=== PATIENT | female | born 1950 | race Two or more races ===

== ENCOUNTER 2020-02-01 10:57 | Outpatient (CLI) | payer OTHER | END 2020-02-01 11:05 | disposition home or self-care (01) | LOC: MAMO-SONO 10:57 | PROVIDERS: ATTEND Internal Medicine | DX: Z12.31 Encounter for screening mammogram for malignant neoplasm of breast (principal) ==

== ENCOUNTER 2020-12-05 09:17 | Outpatient (CLI) | payer OTHER | END 2020-12-05 09:28 | disposition home or self-care (01) | LOC: MAMO-SONO 09:17 | PROVIDERS: ATTEND Internal Medicine | DX: N64.59 Other signs and symptoms in breast (principal); M85.80 Other specified disorders of bone density and structure, unspecified site; Z12.31 Encounter for screening mammogram for malignant neoplasm of breast ==

== ENCOUNTER 2020-12-15 13:34 | Outpatient (CLI) | payer OTHER | END 2020-12-15 13:35 | disposition home or self-care (01) | LOC: NUCLEAR 13:34 | PROVIDERS: ATTEND Internal Medicine | DX: M85.80 Other specified disorders of bone density and structure, unspecified site (principal); M81.0 Age-related osteoporosis without current pathological fracture ==

== ENCOUNTER 2021-10-31 10:49 | Outpatient (CLI) | payer OTHER | END 2021-10-31 10:55 | disposition home or self-care (01) | LOC: MAMO-SONO 10:49 | PROVIDERS: ATTEND Internal Medicine | DX: Z12.31 Encounter for screening mammogram for malignant neoplasm of breast (principal); Z85.3 Personal history of malignant neoplasm of breast; N63.0 Unspecified lump in unspecified breast ==

== ENCOUNTER 2021-11-09 08:13 | Outpatient (CLI) | payer OTHER | END 2021-11-09 08:20 | disposition home or self-care (01) | LOC: RX STUDY 08:13 | PROVIDERS: ATTEND Internal Medicine | DX: R13.10 Dysphagia, unspecified (principal) ==

== ENCOUNTER 2022-03-26 08:51 | Outpatient (CLI) | payer OTHER | END 2022-03-26 08:55 | disposition home or self-care (01) | LOC: TOM 08:51 | DX: C50.411 Malignant neoplasm of upper-outer quadrant of right female breast (principal); N83.292 Other ovarian cyst, left side; Z51.11 Encounter for antineoplastic chemotherapy; Z51.12 Encounter for antineoplastic immunotherapy ==

== ENCOUNTER → 2023-03-05 | Outpatient (CLI) | payer OTHER | END | disposition home or self-care (01) | LOC: RAD 13:49 | PROVIDERS: ATTEND Internal Medicine Gastroenterology | DX: R13.19 Other dysphagia (principal) ==

== ENCOUNTER 2023-03-26 12:29 | Outpatient (CLI) | payer OTHER | END 2023-03-26 14:30 | disposition home or self-care (01) | LOC: MAMO-SONO 12:29 | PROVIDERS: ATTEND Internal Medicine | DX: Z12.31 Encounter for screening mammogram for malignant neoplasm of breast (principal); N60.12 Diffuse cystic mastopathy of left breast; Z85.3 Personal history of malignant neoplasm of breast ==

== ENCOUNTER 2024-03-17 12:45 | Outpatient (CLI) | payer OTHER | END 2024-03-17 12:46 | disposition home or self-care (01) | LOC: NUCLEAR 12:45 | PROVIDERS: ATTEND Internal Medicine | DX: M85.80 Other specified disorders of bone density and structure, unspecified site (principal); M81.0 Age-related osteoporosis without current pathological fracture ==